=== PATIENT | male | born 1985 | race Caucasian/White ===

== ENCOUNTER 2017-09-06 18:23 | Emergency (ER) | payer OTHER ==
[~2017-09-06] VITALS: Ht 167.6 cm; Wt 90.7 kg
[2017-09-06 18:39] VITALS: Ht 167.6 cm; Wt 90.7 kg
[2017-09-06 21:27] VITALS: BP 151/92
== END 2017-09-06 21:28 | disposition home or self-care (01) ==
LOC: ED 18:23
DX: S61.210A Laceration without foreign body of right index finger without damage to nail, initial encounter (principal); S61.214A Laceration without foreign body of right ring finger without damage to nail, initial encounter; K21.9 Gastro-esophageal reflux disease without esophagitis; W26.0XXA Contact with knife, initial encounter; Y93.89 Activity, other specified; Y92.89 Other specified places as the place of occurrence of the external cause; Y99.8 Other external cause status
CPT/HCPCS: 90715; J2001

== ENCOUNTER 2017-09-09 11:59 | Emergency (ER) | payer OTHER ==
[~2017-09-09] VITALS: Ht 167.6 cm; Wt 81.6 kg
[2017-09-09 12:13] VITALS: BP 131/69; Ht 167.6 cm; Wt 81.6 kg
== END 2017-09-09 13:15 | disposition home or self-care (01) ==
LOC: ED 11:59
DX: S61.210D Laceration without foreign body of right index finger without damage to nail, subsequent encounter (principal); S61.212D Laceration without foreign body of right middle finger without damage to nail, subsequent encounter; K21.9 Gastro-esophageal reflux disease without esophagitis; X58.XXXD Exposure to other specified factors, subsequent encounter

== ENCOUNTER 2017-09-17 10:27 | Emergency (ER) | payer OTHER ==
[~2017-09-17] VITALS: Ht 167.6 cm; Wt 90.7 kg
[2017-09-17 10:34] VITALS: BP 130/75; Ht 167.6 cm; Wt 90.7 kg
== END 2017-09-17 11:50 | disposition home or self-care (01) ==
LOC: ED 10:27
DX: S61.210D Laceration without foreign body of right index finger without damage to nail, subsequent encounter (principal); S61.214D Laceration without foreign body of right ring finger without damage to nail, subsequent encounter; S61.216D Laceration without foreign body of right little finger without damage to nail, subsequent encounter; K21.9 Gastro-esophageal reflux disease without esophagitis; X58.XXXD Exposure to other specified factors, subsequent encounter